=== PATIENT | female | born 1970 | race Two or more races ===

== ENCOUNTER 2021-11-25 08:41 | Day surgery (SDC) | payer MEDICARE, OTHER ==
[~2021-11-25] VITALS: Ht 149.9 cm; Wt 43.4 kg
[~2021-11-25 08:41] MED LIST: fentaNYL/PF 50MCG/1 ML 2ML syringe ONE
[2021-11-25] MEDS ORDERED: MIDAZolam 1 MG/ML 5ML VIAL ONE (08:42)
[2021-11-25 08:54] VITALS: BP 144/63
[2021-11-25] MEDS ORDERED: TACR1CAP PO (09:04)
[2021-11-25] MEDS ORDERED: MYCO360T PO (09:05)
[2021-11-25] MEDS ORDERED: PRED5TAB49 PO (09:06)
[2021-11-25] MEDS ORDERED: FAMO-128 PO (09:07)
[2021-11-25] MEDS ORDERED: DAPS100T2 PO (09:08)
[2021-11-25] MEDS ORDERED: VALG450T13 PO (09:09)
[2021-11-25] MEDS ORDERED: CLOT10TR MM (09:11)
[2021-11-25] MEDS ORDERED: HYDR200T84 PO (09:12)
[2021-11-25] MEDS ORDERED: ATOR10TA70 PO (09:13)
[2021-11-25] MEDS ORDERED: ASPI-611 PO (09:14)
[2021-11-25] MEDS ORDERED: CALC0.253 PO (09:15)
[2021-11-25] MEDS ORDERED: SODI325T PO (09:16)
[2021-11-25] MEDS ORDERED: FURO-149 PO (09:18)
[2021-11-25] MEDS ORDERED: [UNRECOGNIZED DRUG - CODE] (09:20)
[2021-11-25] MEDS ORDERED: SOFO1TAB PO (09:20)
[2021-11-25] MEDS ORDERED: HYDR-3964 PO (09:21)
[2021-11-25] MEDS ORDERED: DOCU-150 PO (09:22)
[2021-11-25] MEDS ORDERED: LIDOcaine Viscous 15ml cup ONE (09:22)
[2021-11-25] MEDS ORDERED: ONDA4TAB12 PO (09:23)
[2021-11-25] MEDS ORDERED: diphenhydrAMINE 50 mg/ml inj ONE (09:25)
[2021-11-25 10:03] VITALS: BP 140/82
[2021-11-25 10:13] VITALS: BP 130/73
[2021-11-25 10:23] VITALS: BP 135/78
[2021-11-25 10:33] VITALS: BP 135/73
== END 2021-11-25 10:50 | disposition home or self-care (01) ==
LOC: GI LAB 08:41
PROVIDERS: ATTEND Internal Medicine Gastroenterology
DX: R19.7 Diarrhea, unspecified (principal); K92.1 Melena; R12 Heartburn; R10.13 Epigastric pain; K51.40 Inflammatory polyps of colon without complications; K52.89 Other specified noninfective gastroenteritis and colitis; K29.50 Unspecified chronic gastritis without bleeding
CPT/HCPCS: 43239; 45380; 45385; 88305; 88342; 99153; C1773; G0500; J1200; J2250; J3010; J7040; Z7512; 99152; A4620